=== PATIENT | female | born 1955 | race Caucasian/White ===

== ENCOUNTER 2017-10-21 14:30 | Outpatient (CLI) | payer OTHER | END 2017-10-21 16:13 | disposition home or self-care (01) | LOC: DCC 14:30 | DX: N39.0 Urinary tract infection, site not specified (principal); I10 Essential (primary) hypertension; E78.5 Hyperlipidemia, unspecified; C79.51 Secondary malignant neoplasm of bone; N20.0 Calculus of kidney; Z85.3 Personal history of malignant neoplasm of breast; Z90.13 Acquired absence of bilateral breasts and nipples | CPT/HCPCS: G0463 ==

== ENCOUNTER 2017-11-11 14:36 | Outpatient (CLI) | payer OTHER | END 2017-11-11 15:56 | disposition home or self-care (01) | LOC: DCC 14:36 | DX: I10 Essential (primary) hypertension (principal); E78.5 Hyperlipidemia, unspecified; N20.0 Calculus of kidney; Z85.3 Personal history of malignant neoplasm of breast | CPT/HCPCS: G0463 ==